=== PATIENT | male | born 1975 | race Caucasian/White ===

== ENCOUNTER 2020-02-12 16:27 | Outpatient (CLI) | payer BC, SELFPAY ==
--- NOTE | ~2020-02-12 | US_ITS ---
EXAMINATION: US venous doppler [facility] DATE: 02/12/2020 17:05 INDICATION: Deep venous thrombosis TECHNIQUE: Pina scale images without and with compression and Doppler images of the left lower extrem ity veins were obtained. COMPARISON: 06/09/2019 FINDINGS: The left common femoral vein, profunda femoral vein, femoral vein, popliteal vein, peroneal trunk, posterior tibial veins, and greater saphenous vein are patent. IMPRESSION: 1. Patent left lower extremity veins. No evidence of deep venous thrombosis. Reviewed, dictated and finalized at location A.
== END 2020-02-12 16:28 | disposition home or self-care (01) ==
PROVIDERS: PCP Nurse Practitioner Adult Health; Visit Provider Internal Medicine Hematology & Oncology
DX: I82.4Y2 Acute embolism and thrombosis of unspecified deep veins of left proximal lower extremity (principal)
CPT/HCPCS: 93971

== ENCOUNTER 2021-09-01 08:25 | Outpatient (CLI) | payer BC, SELFPAY ==
--- NOTE | ~2021-09-01 | US_ITS ---
EXAMINATION: US venous doppler [facility] DATE: 09/01/2021 09:00 INDICATION: Left calf pain. TECHNIQUE: Grayscale ultrasound images without and with compression and Doppler ultrasound images of the left lower extremity veins were obtained. COMPARISON: Ultrasound 02/12/2020 FINDINGS: The visualized portions of left common femoral vein, profunda (deep) femoral vein, femoral vein, popl iteal vein, peroneal veins, posterior tibial veins, and greater saphenous vein outflow are patent. IMPRESSION: 1. No deep venous thrombosis. Reviewed, dictated and finalized at location A.
== END 2021-09-01 08:26 | disposition home or self-care (01) ==
PROVIDERS: PCP Nurse Practitioner Adult Health; Visit Provider Internal Medicine Hematology & Oncology
DX: I82.4Y2 Acute embolism and thrombosis of unspecified deep veins of left proximal lower extremity (principal)
CPT/HCPCS: 93971

== ENCOUNTER → 2023-08-20 15:08 | Outpatient (CLI) | payer BC, SELFPAY ==
--- NOTE | ~2023-08-20 | XR_ITS ---
XR chest 2V 08/20/2023 15:24 Indication: Chronic cough Procedure: 2 view chest Comparison: No prior studies for comparison. Findings: Heart size normal. No focal air space disease, pulmonary edema, pleural effusion or suspect ed pneumothorax. No acute osseous abnormality. Impression: 1: No acute cardiopulmonary disease. Reviewed, dictated and finalized at location L. Impression: 1: No acute cardiopulmonary disease.
== END ==
PROVIDERS: PCP Family Medicine; Visit Provider Family Medicine
DX: R05.3 Chronic cough (principal)
CPT/HCPCS: 71046

== ENCOUNTER 2023-09-27 00:08 | Day surgery (SDC) | payer BC, SELFPAY ==
[2023-09-19 14:04] VITALS: BMI 31.6
--- NOTE | 2023-09-25 09:44 | SUR.PREOP ---
Patient called regarding upcoming procedure. Reviewed preop instructions, appointment times, and procedure prep.
[2023-09-27 06:19] VITALS: BP 130/90; PULSE 79; RESP 18; TEMP 36.2; O2SAT 100; BMI 32.1
[2023-09-27] MEDS: LACTATED RINGERS 1,000 ML 150 ML IV CONT (06:30)
--- NOTE | 2023-09-27 07:19 | WPDANESEPPF ---
Anes - Initial Pre Proc Eval Procedure: Operation Date: 09/27/23 07:30 Proposed Procedures p Screening Colonoscopy - Vivek Aquino MD Date/Time: 09/27/23 07:19 Surgeon: Vivek Aquino MD Pre Op Diagnosis: neoplasm screening Patient Data Age: 48 Gender: M Height: 1.85 m Weight: 110.6 kg Last Vital Signs Temp 97.2 F L 09/27/23 06:19 Pulse 79 09/27/23 06:19 Resp 18 09/27/23 06:19 BP 130/90 09/27/23 06:19 Pulse Ox 100 09/27/23 06:19 O2 Del Method Room Air 09/27/23 06:19 Allergies Allergy/AdvReac Type Severity Reaction Status Date / Time ibuprofen Allergy Intermediate Wheezing Verified 09/27/23 06:17 Home Medications Medication Instructions Recorded Confirmed Type acetaminophen 500 mg tablet 500 mg PO Q6H PRN Pain 04/17/23 09/27/23 History cetirizine 10 mg tablet (Zyrtec) 10 mg PO DAILY PRN Sinus Symptoms 04/17/23 09/27/23 History rivaroxaban 10 mg tablet (Xarelto) 10 mg PO DAILY #90 tabs 09/17/23 09/27/23 Rx albuterol sulfate 90 mcg/actuation 2 puff inhalation Q4H PRN 09/24/23 09/27/23 Rx aerosol inhaler shortness of breath or wheezing #8.5 grams Patient hx anesthesia problems: none Family hx anesthesia problems: none Results Review: All pre-operative results and documents have been reviewed as part of the pre-operative evaluation. [facility] Past Medical History Medical History BMI 30.0-30.9,adult CMC arthritis, thumb, degenerative Hearing loss in left ear History of deep venous thrombosis (DVT) of distal vein of left lower extremity (~06/2019) History of deep venous thrombosis or pulmonary embolus History of pulmonary embolism (~09/2019) Migraine headache with aura Seasonal allergies Surgical History Surgical History History of vasectomy (~2011) Family History Family History Mother Hypertension Kidney disease Asthma Father Cancer Sibling Cancer Social History Social History Smoking status: Never smoker Alcohol intake: never Substance use: never Substance use type: does not use Lack of Transportation: No Lack of Food: Never True Current Housing: I Have Housing Concerned About Future Housing: No Difficulty Paying Gas/Electric Bills: No Difficulty Paying for Meds: No Currently Unemployed: No Education: Associate Degree Difficulty w/ Childcare or Family Care: No Living arrangements: with family Occupation/Education: occupation 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 Informed Consent: The patient's anesthetic plan and its attendant risks and benefits were discussed with the patient/family/POA. Questions were solicited and answers provided to the satisfaction of the patient/family/POA.
--- NOTE | 2023-09-27 07:23 | PM.HPGS ---
History of Present Illness History of Present Illness Consent: Risks, benefits, and alternatives have been discussed and questions answered. Patient agrees to proceed with procedure. Chief complaint: neoplasm screening Narrative: Chicho Rankin is a 48 year old male Presents for screening colonoscopy. Patient reports his current weight appetite and bowel movements are normal. Patient denies abdominal pain. He has had no bleeding. Family history noncontributory. Patient presents today for a screening colonoscopy. 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 Review of Systems Review of Systems: Review of systems is noncontributory. [facility] Past Medical History Medical History BMI 30.0-30.9,adult CMC arthritis, thumb, degenerative Hearing loss in left ear History of deep venous thrombosis (DVT) of distal vein of left lower extremity (~06/2019) History of deep venous thrombosis or pulmonary embolus History of pulmonary embolism (~09/2019) Migraine headache with aura Seasonal allergies Surgical History Surgical History History of vasectomy (~2011) Family History Family History Mother Hypertension Kidney disease Asthma Father Cancer Sibling Cancer Social History Social History Smoking status: Never smoker Alcohol intake: never Substance use: never Substance use type: does not use Lack of Transportation: No Lack of Food: Never True Current Housing: I Have Housing Concerned About Future Housing: No Difficulty Paying Gas/Electric Bills: No Difficulty Paying for Meds: No Currently Unemployed: No Education: Associate Degree Difficulty w/ Childcare or Family Care: No Living arrangements: with family Occupation/Education: occupation 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 Gender identity (if verbalized by the patient): Male Spiritual care concerns: No Meds Home Medications and Allergies Home Medications Medication Instructions Recorded Confirmed Type acetaminophen 500 mg tablet 500 mg PO Q6H PRN Pain 04/17/23 09/27/23 History cetirizine 10 mg tablet (Zyrtec) 10 mg PO DAILY PRN Sinus Symptoms 04/17/23 09/27/23 History rivaroxaban 10 mg tablet (Xarelto) 10 mg PO DAILY #90 tabs 09/17/23 09/27/23 Rx albuterol sulfate 90 mcg/actuation 2 puff inhalation Q4H PRN 09/24/23 09/27/23 Rx aerosol inhaler shortness of breath or wheezing #8.5 grams Allergies Allergy/AdvReac Type Severity Reaction Status Date / Time ibuprofen Allergy Intermediate Wheezing Verified 09/27/23 06:17 Vital Signs Vital Signs - 24 hr 09/27/23 06:19 Temperature 97.2 F L Pulse Rate 79 Respiratory Rate 18 Blood Pressure 130/90 Pulse Oximetry 100 Oxygen Delivery Room Air Exam Narrative: Physical exam reveals patient to be alert. Vital signs stable. HEENT exam is unremarkable. Patient is anicteric. Lungs are clear to auscultation and percussion. Heart is without murmur or extra sounds. Abdomen bowel sounds are present soft nontender with no organomegaly. Digital external rectal exam normal. Assessment and Plan Assessment and plan (1) Encounter for screening colonoscopy: Code(s): Z12.11 - Encounter for screening for malignant neoplasm of colon Status: Acute Assessment and Plan: patient presents today for screening colonoscopy. He appears to be at average risk for colon polyps. Further recommendations may be given after endoscopy.
[2023-09-27 07:51] VITALS: BP 100/42; PULSE 78; RESP 17; O2SAT 95
[2023-09-27 08:01] VITALS: BP 113/75; PULSE 70; RESP 18; O2SAT 96
[2023-09-27 08:09] VITALS: BP 122/75; PULSE 68; RESP 19; O2SAT 94
== END 2023-09-27 08:15 | disposition home or self-care (01) ==
PROVIDERS: PCP Family Medicine; Visit Provider Internal Medicine Gastroenterology
PROC: 0DJD8ZZ Inspection of Lower Intestinal Tract, Via Natural or Artificial Opening Endoscopic (ICD-10-PCS; CPT 45378; principal; 2023-09-27 07:30)
DX: Z12.11 Encounter for screening for malignant neoplasm of colon (principal); K64.8 Other hemorrhoids; Z79.01 Long term (current) use of anticoagulants; Z79.51 Long term (current) use of inhaled steroids; Z86.718 Personal history of other venous thrombosis and embolism; Z86.711 Personal history of pulmonary embolism; E66.9 Obesity, unspecified; Z68.32 Body mass index [BMI] 32.0-32.9, adult
CPT/HCPCS: 45378; J7120

== ENCOUNTER 2023-10-10 14:35 | Outpatient (CLI) | payer BC, SELFPAY ==
--- NOTE | 2023-10-11 13:56 | P.PCNPFT_ITS ---
PFT Procedure Performed PFT Procedure Performed Spirometry with Pre/Post Bronchodilator Plethysmography (Lung Vol) Diffusing Cap (DLCO) Flow Vol Loop PFT Interpretation This is a pulmonary function test with pre and post-bronchodilator spirometry, plethysmography and diffusing capacity. The test was performed and results interpreted in accordance with the 2019 and 2005 ATS/ERS Task Force guidelines respectively using the Global Lung Function Initiative-2012 reference equations. Patient demonstrated good effort and cooperation. Reproducibility criteria were met. The quality of the pre bronchodilator spirometry maneuver was Grade A and post bronchodilator spirometry maneuver was Grade A. Findings: Spirometry: There is decreased maximal expiratory airflow at all lung volumes with a concave expiratory flow tracing. The contour the inspiratory flow tracing is normal. The pre bronchodilator FVC is 5.13 L, 93% predicted. The pre bronchodilator FEV1 is 3.42 L, 80% predicted. The pre bronchodilator FEV1: FVC ratio 67%. The post bronchodilator FVC is 5.17 L, representing a 1% increase. The post bronchodilator FEV1 is 3.61 L, representing a 6% increase. The post bronchodilator FEV1: FVC ratio is 70%. Plethysmography: The total lung capacity is 6.78 L, 90% predicted. The functional residual capacity is 2.26 L, 58% predicted. The residual volume is 1.61 L, 74% predicted. Diffusing capacity: The diffusing capacity unadjusted for hemoglobin and carboxyhemoglobin is 26.0, 81% predicted. The diffusing capacity adjusted for alveolar volume is 4.13, 94% predicted. Impression: There is a mild obstructive abnormality with a normal FEV1 and without significant improvement after inhaling a single dose of albuterol. The total lung capacity and residual volume are normal with a decreased functional residual capacity. This is an abnormal but nonspecific lung volume pattern. Th e diffusing capacity is normal. There are no prior studies for comparison
== END 2023-10-10 14:36 | disposition home or self-care (01) ==
PROVIDERS: PCP Family Medicine; Visit Provider Family Medicine
DX: R05.3 Chronic cough (principal); R94.2 Abnormal results of pulmonary function studies
CPT/HCPCS: 94060; 94726; 94729

== ENCOUNTER 2024-04-23 13:56 | Emergency (ER) | payer BC, SELFPAY ==
--- NOTE | ~2024-04-23 | XR_ITS ---
XR lumbar spine min 4V 04/23/2024 14:48 Indication: Back pain Procedure: 5 views of the lumbar spine Comparison: No prior studies for comparison. Findings: There is dextroscoliosis. There is disc narrowing at all lumbar levels. Vertebral body heig hts are maintained. No fracture or traumatic malalignment. Pedicles intact. Sacral foramen are symmet maría elena. No evidence for spondylolisthesis. There is mild facet hypertrophy at L4-5 and L5-S1. Impression: 1: Mild-moderate lumbar spondylosis. Reviewed, dictated and finalized at location B. Impression: 1: Mild-moderate lumbar spondylosis.
--- NOTE | 2024-04-23 14:16 | ED.BACK ---
HPI - Back Pain/Injury General Chief Complaint: Back Pain/Injury Stated Complaint: Back Pain Time Seen by Provider: 04/23/24 14:24 Source: patient Mode of arrival: ambulatory Limitations: no limitations History of Present Illness HPI Narrative: 49 y/o male presented for c/o mid lower back pain x4 days. States he felt sore for a few days prior due to car travel, then reports a sharp shooting pain while walking across his living room. Pain occasionally shoots down the left leg, and is worse when changing position from sitting to standing. Rates pain 6/10 sitting, 10/10 with changing position. States the pain causes him to lift his leg with hands to get into a car. Denies numbness, tingling, weakness of the lower extremities, or change in gait, saddle paresthesia or loss of bowel or bladder. Took a dose of Tylenol at onset without relief so he did not take any more. Used heating pad. Cannot take ibuprofen because it induces asthma. Related Data Home Medications Medication Instructions Recorded Confirmed acetaminophen 500 mg tablet 500 mg PO Q6H PRN Pain 04/17/23 04/23/24 cetirizine 10 mg tablet (Zyrtec) 10 mg PO DAILY PRN Sinus Symptoms 04/17/23 04/23/24 Allergies Allergy/AdvReac Type Severity Reaction Status Date / Time ibuprofen Allergy Intermediate Wheezing Verified 04/23/24 14:44 Review of Systems Review of Systems: CONSTITUTIONAL: Denies body aches, fever, chills EYES: Denies visual changes CARDIOVASCULAR: Denies chest pain, palpitations, or edema. RESPIRATORY: Denies cough or dyspnea. GASTROINTESTINAL: Denies abdominal pain, nausea, vomiting, or diarrhea. SKIN: Denies rash, itching, or wounds. MUSCULOSKELETAL: reports back pain NEUROLOGIC: Denies headache, numbness, tingling, or weakness. All systems reviewed & are unremarkable except as noted in HPI and below PMFSH Past Medical History Medical History BMI 30.0-30.9,adult CMC arthritis, thumb, degenerative Hearing loss in left ear History of deep venous thrombosis (DVT) of distal vein of left lower extremity (~06/2019) History of deep venous thrombosis or pulmonary embolus History of pulmonary embolism (~09/2019) Migraine headache with aura Seasonal allergies Surgical History Surgical History History of vasectomy (~2011) Family History Family History Mother Hypertension Kidney disease Asthma Father Cancer Sibling Cancer Social History Social History Smoking status: Never smoker Alcohol intake: never Substance use: never Substance use type: does not use Lack of Transportation: No Lack of Food: Never True Current Housing: I Have Housing Concerned About Future Housing: No Difficulty Paying Gas/Electric Bills: No Difficulty Paying for Meds: No Currently Unemployed: No Education: Associate Degree Difficulty w/ Childcare or Family Care: No Living arrangements: with family Occupation/Education: occupation 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 Please see nursing chart for further information. There is no relevant family history pertinent to the presenting complaint Exam Narrative: GENERAL: Well-appearing; standing due to pain CHEST: Speaks in full sentences. No respiratory distress. HEART: Regular rate and rhythm. Normal and equal peripheral pulses. MUSC: Pain reported to L5-S1 area. No Vertebral point tenderness or paraspinal tenderness. BLEs with normal strength and sensation, normal range of motion endorses pain with lifting leg movements. No ec
[2024-04-23 16:26] VITALS: BP 139/75; PULSE 80; RESP 14; TEMP 36.4; O2SAT 98
== END 2024-04-23 15:14 | disposition home or self-care (01) ==
PROVIDERS: Emergency Provider Nurse Practitioner Family; PCP Family Medicine
DX: M54.16 Radiculopathy, lumbar region (principal); Z86.711 Personal history of pulmonary embolism; Z86.718 Personal history of other venous thrombosis and embolism
CPT/HCPCS: 72110; 99213; G0463